=== PATIENT | male | born 1950 | race Caucasian/White ===

== ENCOUNTER 2022-12-02 07:40 | Outpatient (CLI) | payer OTHER | END 2022-12-02 07:49 | disposition home or self-care (01) | LOC: SONOGRAMA 07:40 → EDBD 07:40 → SONOGRAMA 07:49 | PROVIDERS: ATTEND Urology | DX: C61 Malignant neoplasm of prostate (principal); N41.1 Chronic prostatitis; D29.1 Benign neoplasm of prostate; R97.20 Elevated prostate specific antigen [PSA] ==